=== PATIENT | male | born 1975 | race Caucasian/White ===

== ENCOUNTER 2017-06-04 19:25 | Emergency (ER) | payer OTHER, SELFPAY ==
[2017-06-04 20:09] VITALS: BP 116/63; PULSE 98; RESP 22; TEMP 36.6; O2SAT 97; BMI 22.8
--- NOTE | 2017-06-04 20:23 | HMH.EDUTC ---
[facility] [place] Disposition Clinical Impression: Influenza Disposition: Home, Self-Care Condition on Discharge: Good Instructions: Influenza Additional Instructions: ? Lots of rest ? Increase Fluids water, Gatorade, powerade, pedialyte,if /toddler/child ? Alternate Tylenol and / or ibuprofen as discussed for fever, aches, chills x 24 hours without medication for symptoms ? Follow up IMMEDIATELY for new or worsening Symptoms OR no noticeable improvement over the next 48-72 hours, 911 for difficulty or breathing ? You or your child area contagious until no fever, aches, chills for 24 hours with medication for symptoms Considering you didnt want to take Tamiflu make sure that you drink plenty of fluids, cover your cough, rest, Over the counter Motrin or Tylenol as needed for fever or pain Forms: Work/School Release Time of Disposition: 20:28 Medical Decision Making - Medical Records Medical records reviewed: Yes: I reviewed the patient's medical records. Vital Signs: 06/04/17 20:09 Temperature 98 F Temperature Source Temporal Artery Scan Pulse Rate [Right] 98 H Respiratory Rate 22 Blood Pressure [Right Arm] 116/63 Blood Pressure Mean [Right Arm] 80 Blood Pressure Source [Right Arm] Automatic Cuff Blood Pressure Position [Right Arm] Sitting 02 Sat by Pulse Oximetry 97 Oxygen Delivery Method Room Air - Gianni Inquiry Pt receiving controlled substance: No Gianni was queried for this patient: No - Reevaluation(s) Time: 20:27 (Patient state that he does not want to take Tamiflu that he has taking it in the past and it made his stomach hurt) [facility] [place] HPI - General Stated complaint: fever, cough, sore throat Mode of Arrival: Ambulatory Source of Information: Patient Limitations: No Limitations Description of Symptoms (Recalled from Triage Doc. by RN): COUGH, CONGESTION HEENT Symptoms (Recalled from RN notes): Yes Resp Symptoms (Recalled from RN notes): No Skin Symptoms (Recalled from RN notes): No MS Symptoms (Recalled from RN notes): No Functional Status (Recalled from RN notes): N - History of Present Illness Provider Complaint: State that his had the flu last week State that for the last 3 days he hasn't been feeling well State that today he began to run a fever and it has continued to come and go all day State that fever has been running around 101.5 - Related Data Home Medications Medication Instructions Recorded Confirmed No Known Home Medications [No 06/04/17 06/04/17 Known Home Medications] Allergies Allergy/AdvReac Type Severity Reaction Status Date / Time morphine [MORPHINE] Allergy Intermediate Verified 06/04/17 20:13 oxycodone [OXYCODONE] Allergy Intermediate Verified 06/04/17 20:13 - Worker's Comp Is this a Worker's Comp case?: Yes [facility] History I have reviewed the patient's past medical history: Yes - *Social History Smoking Status: Current every day smoker Tobacco Type: cigarettes Alcohol Intake: never - Psychiatric History Expresses thoughts of harming self/others: None Suicide Plan Description: No Plan ROS Obtained: Yes All systems reviewed & no additional complaints - Constitutional Constitutional: Reports body ache, Reports chills, Reports fever(s) - ENT Ears, Nose, Mouth, and Throat: Reports sore throat Physical Exam - General General appearance: alert, in no apparent distress - Expanded ENT Exam Comment: Throat red, and irritated - Respiratory Respiratory exam: Present: normal lung sounds bilaterally. Absent: respiratory distress - Cardiovascular Cardiovascular exam: Present: regular rate, normal rhythm. Absent: JVD - Neurological Exam Neurological exam: Present: alert, oriented X3
[2017-06-04 20:24] LABS: UTC Influenza A Antigen Positive (Negative); UTC Influenza B Antigen Negative (Negative)
--- NOTE | 2017-06-04 20:27 | ED_ITS ---
[facility] [place] Disposition Clinical Impression: Influenza Disposition: Home, Self-Care Condition on Discharge: Good Instructions: Influenza Additional Instructions: ? Lots of rest ? Increase Fluids water, Gatorade, powerade, pedialyte,if /toddler/child ? Alternate Tylenol and / or ibuprofen as discussed for fever, aches, chills x 24 hours without medication for symptoms ? Follow up IMMEDIATELY for new or worsening Symptoms OR no noticeable improvement over the next 48-72 hours, 911 for difficulty or breathing ? You or your child area contagious until no fever, aches, chills for 24 hours with medication for symptoms Considering you didnt want to take Tamiflu make sure that you drink plenty of fluids, cover your cough, rest, Over the counter Motrin or Tylenol as needed for fever or pain Forms: Work/School Release Time of Disposition: 20:28 Medical Decision Making - Medical Records Medical records reviewed: Yes: I reviewed the patient's medical records. Vital Signs: 06/04/17 20:09 Temperature 98 F Temperature Source Temporal Artery Scan Pulse Rate [Right] 98 H Respiratory Rate 22 Blood Pressure [Right Arm] 116/63 Blood Pressure Mean [Right Arm] 80 Blood Pressure Source [Right Arm] Automatic Cuff Blood Pressure Position [Right Arm] Sitting 02 Sat by Pulse Oximetry 97 Oxygen Delivery Method Room Air - Gianni Inquiry Pt receiving controlled substance: No Gianni was queried for this patient: No - Reevaluation(s) Time: 20:27 (Patient state that he does not want to take Tamiflu that he has taking it in the past and it made his stomach hurt) [facility] [place] HPI - General Stated complaint: fever, cough, sore throat Mode of Arrival: Ambulatory Source of Information: Patient Limitations: No Limitations Description of Symptoms (Recalled from Triage Doc. by RN): COUGH, CONGESTION HEENT Symptoms (Recalled from RN notes): Yes Resp Symptoms (Recalled from RN notes): No Skin Symptoms (Recalled from RN notes): No MS Symptoms (Recalled from RN notes): No Functional Status (Recalled from RN notes): N - History of Present Illness Provider Complaint: State that his had the flu last week State that for the last 3 days he hasn't been feeling well State that today he began to run a fever and it has continued to come and go all day State that fever has been running around 101.5 - Related Data Home Medications Medication Instructions Recorded Confirmed No Known Home Medications [No 06/04/17 06/04/17 Known Home Medications] Allergies Allergy/AdvReac Type Severity Reaction Status Date / Time morphine [MORPHINE] Allergy Intermediate Verified 06/04/17 20:13 oxycodone [OXYCODONE] Allergy Intermediate Verified 06/04/17 20:13 - Worker's Comp Is this a Worker's Comp case?: Yes [facility] History I have reviewed the patient's past medical history: Yes - *Social History Smoking Status: Current every day smoker Tobacco Type: cigarettes Alcohol Intake: never - Psychiatric History Expresses thoughts of harming self/others: None Suicide Plan Description: No Plan ROS Obtained: Yes All systems reviewed & no additional complaints - Constitutional Constitutional: Reports body ache, Reports chills, Reports fever(s) - ENT Ears, Nose, Mouth, and Throat: Reports sore throat Physical Exam - General General
== END 2017-06-04 20:30 | disposition home or self-care (01) ==
PROVIDERS: Emergency Provider Nurse Practitioner; Family Provider Emergency Medicine
DX: J11.1 Influenza due to unidentified influenza virus with other respiratory manifestations (principal); F17.210 Nicotine dependence, cigarettes, uncomplicated
CPT/HCPCS: 87804; 99201

== ENCOUNTER 2017-06-09 09:25 | Emergency (ER) | payer OTHER, SELFPAY ==
[2017-06-09 09:38] VITALS: BP 137/88; PULSE 72; RESP 20; TEMP 36.6; O2SAT 98; BMI 22.7
--- NOTE | 2017-06-09 09:43 | XR_ITS ---
XR chest 2V Ordering Physician: Samantha Stovall Patient Age: 42 years: Male HISTORY: ITS.REASON: PRODUCTIVE COUGH TECHNIQUE: PA and lateral chest COMPARISON :Previous chest film June 2011 FINDINGS Nothing definitely acute. No discrete focal consolidation or peripheral pneumonia. The minor accentuation of markings toward the right lower lobe on a lateral view appears stable since 2012 and most likely reflects less than optimal inspiration on the lateral view. There may be some upper normal thickening airways which could reflect bronchitis. Is this patient is smoker? . Heart juanita and mediastinal structures satisfactory Heart juanita and mediastinal structures stable. Chest wall T-spine unremarkable. IMPRESSION: Nothing definitely acute. Stable chest versus 2012
--- NOTE | 2017-06-09 10:16 | HMH.EDUTC ---
[facility] [place] Clinical Impression: Acute bronchitis Qualifiers: Bronchitis organism: other organism Qualified Code(s): J20.8 - Acute bronchitis due to other specified organisms Disposition: Home, Self-Care Condition on Discharge: Good Instructions: Acute Bronchitis, DI for Acute Bronchitis Additional Instructions: Increase fluids. rest Tylenol and ibuprofen as needed for pain or fever Medication is ordered Follow up with primary care this week if no improvement If symptoms worsen or do not improve return to be seen in the ER Time of Disposition: 10:44 Medical Decision Making Vital Signs: 06/09/17 09:38 Temperature 97.9 F Temperature Source Temporal Artery Scan Pulse Rate [Brachial] 72 Respiratory Rate 20 Blood Pressure [Right Arm] 137/88 Blood Pressure Mean [Right Arm] 104 Blood Pressure Source [Right Arm] Automatic Cuff Blood Pressure Position [Right Arm] Sitting 02 Sat by Pulse Oximetry 98 Oxygen Delivery Method Room Air Orders (Tests/Meds): ORDERS Category Date Time Status Chest XR 2 view (NOT portable) [XR chest 2V] Stat Exams 06/09/17 09:43 Taken - Radiology Data #1 Image(s): Chest Image Reviewed: Yes I reviewed the patient's radiology image Preliminary Findings: Normal/NAD - Gianni Inquiry Pt receiving controlled substance: No [facility] [place] - General Chief complaint: [facility] Stated complaint: cough drainage Time Seen by Provider: 06/09/17 10:16 Mode of Arrival: Ambulatory Source of Information: Patient Limitations: No Limitations Description of Symptoms (Recalled from Triage Doc. by RN): PT COMPLAINS OF A COUGH THAT HE HAS HAD FOR APPROX 9 DAYS. STATES HE WAS SEEN LAST WEEK HERE AT THE [facility] AND TOLD THAT HE HAD THE FLU BUT DID NOT KNOW IF HE WAS STARTING THE FLU OR GETTING OVER THE FLU. STATES HE IS NO BETTER. HEENT Symptoms (Recalled from RN notes): No Resp Symptoms (Recalled from RN notes): Yes Skin Symptoms (Recalled from RN notes): No MS Symptoms (Recalled from RN notes): No Functional Status (Recalled from RN notes): NA - History of Present Illness Provider Complaint: 42-year-old male presents today for cough, body aches, chest congestion, diagnosed last week with flu refused Tamiflu and states he is feeling worse. - Related Data Home Medications Medication Instructions Recorded Confirmed No Known Home Medications [No 06/04/17 06/04/17 Known Home Medications] Allergies Allergy/AdvReac Type Severity Reaction Status Date / Time morphine [MORPHINE] Allergy Intermediate Verified 06/04/17 20:13 oxycodone [OXYCODONE] Allergy Intermediate Verified 06/04/17 20:13 - Worker's Comp Is this a Worker's Comp case?: No [facility] History I have reviewed the patient's past medical history: Yes - *Social History Smoking Status: Current every day smoker Tobacco Type: cigarettes Alcohol Intake: never - Psychiatric History Expresses thoughts of harming self/others: None Suicide Plan Description: No Plan ROS Obtained: Yes All systems reviewed & no additional complaints - Constitutional Constitutional: Reports system reviewed and no additional complaints, except as docu, Reports body ache, Reports chills, Reports fever(s) - Eyes Eyes: Reports system reviewed and no additional complaints, except as docu - ENT Ears, Nose, Mouth, and Throat: Reports system reviewed and no additional complaints, except as docu - Cardiovascular Cardiovascular: Reports system reviewed and no additional complaints, except as docu, Reports as per HPI - Respiratory Respiratory: Yes system reviewed and no additional complaints, except as docu, Yes chest congestion, Yes cough, Yes non-productive cough - Gastrointestinal Gastrointestingal: Reports: system reviewed and no additional complaints, except as docu - Musculoskeletal Musculoskeletal: Reports system reviewed and no additional complaints, except as docu - Integumentary/Breasts Skin/Breast: Reports syste
== END 2017-06-09 11:00 | disposition home or self-care (01) ==
PROVIDERS: Emergency Provider Nurse Practitioner Family; Family Provider Emergency Medicine
DX: J20.8 Acute bronchitis due to other specified organisms (principal); F17.210 Nicotine dependence, cigarettes, uncomplicated
CPT/HCPCS: 71046; 99202

== ENCOUNTER 2019-12-11 22:35 | Emergency (ER) | payer BC, SELFPAY ==
[2019-12-11 22:42] VITALS: BMI 22.7
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
[2019-12-11 22:43] VITALS: BP 127/82; PULSE 90; RESP 18; TEMP 36.8; O2SAT 98; BMI 22.7
--- NOTE | 2019-12-11 22:43 | XR_ITS ---
PROCEDURE: XR WRIST RT MIN 3V Patient Age:44Y CLINICAL INDICATION: fall landing on and trying to catch himself with wrist. With pain at right wrist radial aspect. History of screw placement 20 years ago COMPARISON: No exams were available for comparison FINDINGS: 3 right wrist 3view: AP lateral and oblique A fixation screw in place entering obliquely from the radial styloid anteriorly and obliquely passing into and transversing the distal radius. There has been advanced healing at the old distal radial fracture with residual deformity. There is a old displaced corticated fragment and irregularity irregularity anterior aspect of the distal radius... Suggestion of narrowing of the radial/lunate articulation with degenerative changes and most evident at this specific articulation. 5.5 cm cystic area at lunate noted.. Question possible minimal old depression distal radial articular surface with minimal hypertrophic buttressing about this joint likely present... If pain persists consider Orthopedic follow-up. Obtaining comparison old films, would be very helpful to see if there has been interval change in this case. .. No discrete acute fracture. Also note ulnar positive variant. With this the distal ulna can impinge upon the triquetrum but no prominent changes here on plain film. Mild irregularity at the distal ulna suggests there may have been old fracture here as well and possibly at base of ulnar styloid Minor soft tissue swelling anteriorly but IMPRESSION: No good evidence of acute fracture or findings . Postsurgical changes at distal radius. Posttraumatic changes at distal radius and ulna; with narrowing and degenerative changes most notable at radial-lunate articulation. If pain persist suggest attempting obtain any interval old lower right wrist studies would be helpful, along with orthopedic follow-up Dictated by: Adonis Marcelo MD 12/12/2019 11:55 Electronically signed by Adonis Marcelo MD in [place] 12/12/2019 11:55
[2019-12-11 23:05] VITALS: BP 132/81; PULSE 88; RESP 18; TEMP 36.7
== END 2019-12-11 23:08 | disposition home or self-care (01) ==
PROVIDERS: Emergency Provider Emergency Medicine; PCP Emergency Medicine
DX: S63.501A Unspecified sprain of right wrist, initial encounter (principal); W01.0XXA Fall on same level from slipping, tripping and stumbling without subsequent striking against object, initial encounter; Y92.017 Garden or yard in single-family (private) house as the place of occurrence of the external cause
CPT/HCPCS: 29125; 73110; 99282; 99283

== ENCOUNTER 2020-07-01 01:02 | Emergency (ER) | payer BC, SELFPAY ==
[2020-07-01 01:03] VITALS: BP 121/65; PULSE 89; RESP 16; TEMP 36.8; O2SAT 97; BMI 22.7
[2020-07-01 01:36] VITALS: BP 121/65; PULSE 89; RESP 16; TEMP 36.8; O2SAT 98
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
== END 2020-07-01 01:40 | disposition home or self-care (01) ==
PROVIDERS: Emergency Provider Emergency Medicine; PCP Emergency Medicine
DX: Z00.8 Encounter for other general examination (principal)
CPT/HCPCS: 36415; 99282

== ENCOUNTER → 2020-10-12 10:32 | Outpatient (CLI) | payer BC, SELFPAY ==
[2020-10-12 11:10] LABS: Basophils % 0.6 % (0.1-2.0); Eosinophils # 0.1 K/mm3 (0.0-0.4); Eosinophils % 1.3 % (0.1-12.0); Hematocrit 47.8 % (42.0-52.0); Hemoglobin 16.2 g/dL (14.1-18.0); Lymphocytes # 1.8 K/mm3 (0.7-4.5); Mean Corpuscular HGB Conc 33.9 g/dL (31.8-35.4); Mean Corpuscular Hemoglobin 31.2 pg (27.0-31.2); Mean Platelet Volume 7.2 fl (7.4-10.4); Monocytes # 0.4 K/mm3 (0.1-1.0); Monocytes % 6.8 % (1.7-9.3); Neutrophils # 3.3 K/mm3 (1.8-7.8); Neutrophils % 59.3 % (37.0-80.0); Platelet Count 241 K/mm3 (142-424); Red Cell Distribution Width 13.2 % (11.5-17.5); White Blood Count 5.5 K/mm3 (4.8-10.8)
[2020-10-12 11:37] LABS: Alanine Aminotransferase 19 U/L (12-78); Albumin Level 4.4 g/dl (3.5-5.0); Albumin/Globulin Ratio 1.8 (1.1-1.8); Alkaline Phosphatase 52 U/L (38-126); Anion Gap 10.6 mEq/L (5-15); Aspartate Amino Transferase 24 U/L (17-59); Bilirubin,Total 0.5 mg/dl (0.2-1.3); Blood Urea Nitrogen 16 mg/dl (9-20); Calcium 9.2 mg/dl (8.4-10.2); Carbon Dioxide 30 mmol/L (22.0-30.0); Chloride 107 mmol/L (98-107); Chol/HDL Ratio 3.6 (1-3.5); Cholesterol 161 mg/dl (140-200); Estimated Glomerular Filt Rate 80 ml/min (>60); GFR (African American) 97 ML/MIN (>60); Globulin 2.5 g/dL (1.3-3.2); Glucose 89 mg/dl (74-100); HDL Cholesterol 45 mg/dl (40-60); Potassium 4.6 mmoL/L (3.5-5.1); Sodium 143 mmol/L (136-145); Total Protein,Serum 6.9 g/dl (6.3-8.2); Triglycerides 74 mg/dl (30-150); VLDL Cholesterol 15 mg/dL (0-40)
[2020-10-12 11:49] LABS: Direct LDL Cholesterol 85.03 mg/dL (100-129)
[2020-10-12 11:54] LABS: T4 (Thyroxine) 7.8 ug/dl (5.53-11.0)
[2020-10-12 11:55] LABS: 25-OH Vitamin D, Total 28.9 ng/mL (30-100)
[2020-10-12 12:08] LABS: Prostate Specific Ag Screen 1.9 ng/ml (0.0-4.0); Thyroid Stimulating Hormone 0.72 uIU/mL (0.465-4.68)
== END ==
PROVIDERS: Visit Provider Nurse Practitioner Family
DX: Z00.00 Encounter for general adult medical examination without abnormal findings (principal); Z12.5 Encounter for screening for malignant neoplasm of prostate; E55.9 Vitamin D deficiency, unspecified
CPT/HCPCS: 36415; 80053; 80061; 82306; 84436; 84443; 85025; G0103

== ENCOUNTER 2021-05-24 13:31 | Emergency (ER) | payer BC, SELFPAY ==
[2021-05-24] VITALS (7 sets, daily range): BP systolic 0–71; BP diastolic 0–48; PULSE 0–129; RESP 0–33; TEMP -17.7–0; O2SAT 0–83; BMI 24.3
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
--- NOTE | 2021-05-24 13:35 | PC.NURSE ---
Chest tube inserted to left side of chest region per
--- NOTE | 2021-05-24 13:42 | PC.NURSE ---
on hold with [facility] MDs
--- NOTE | 2021-05-24 13:42 | PC.NURSE ---
Inserting chest tube at this time
--- NOTE | 2021-05-24 13:43 | PC.NURSE ---
2 units of O neg PRBC administered at 1343 ended at 1356 2 units of O + spiked and infusing, ended at 1404, 2 units of A+ spiked and infusing, pt before units were completely infused.
--- NOTE | 2021-05-24 14:15 | PC.NURSE ---
1250 of blood out from chest tube
--- NOTE | 2021-05-24 14:55 | PC.NURSE ---
Notified SAUL of
--- NOTE | 2021-05-24 15:17 | PC.NURSE ---
1344: pt began to smith down to the 40s, 1 amp of atropine and 1 of epi given at 1345. 1350: pulse 150, 200m of succs and 20mg of etomidate given for intubation 1353: intubation unsuccessful: nasal airway place per MD 1355: pulse checked, no pulse, CPR initiated, 1 of epi given 1356: intubated with 7.5 ETT 23 @ lip 1358: pulse check, PEA noted to monitor, 1 of epi given, CPR continued. 1359: 1 amp of bicarb given 1401: pulse check, pt does have a pulse, sinus on monitor. 1401: pulse lost again, PEA on monitor, CPR cont., 1 epi given 1402: doppler pulse noted to be 150 1404: 1 of epi given 1406: pulse check, PEA, CPR continued. 1407: 1 epu given 1409: pulse neck, no pulse, CPR continued 1415: speaking to family 1416: called TOD
--- NOTE | 2021-05-24 16:00 | PC.NURSE ---
Spoke to Jay at [facility] and stated not to release body and that she would xavier back
--- NOTE | 2021-05-24 16:02 | PC.NURSE ---
SAUL released body,
--- NOTE | 2021-05-24 16:18 | [facility].EDTRAUMA ---
ED Disposition Clinical Impression: Cardiopulmonary arrest Disposition: Condition on Discharge: Referrals: Provider,Referral, [Primary Care Provider] - - Critical Care Critical Care Time: Yes Attestation: On 05/24/21, the high probability of a clinically significant, sudden or life threatening deterioration of the following system(s) required my full and direct attention, intervention and personal management. The time I documented below is in addition to time spent performing reported procedures but includes the following listed in this critical care notation. Vital system(s) involved:: Circulatory Failure, Respiratory Failure My critical care processes included: Assessment & monitoring of V/S, Initial and Re-exams, Data Review/Interpretation, Coordinating Care, Medication Orders and management, Documentation Medical Decision Making - Gianni Inquiry Pt receiving controlled substance: No Vital Signs: 05/24/21 13:31 05/24/21 13:34 05/24/21 13:38 Pulse Rate 126 H 122 H Pulse Rate [Apical] 129 H Respiratory Rate 25 H 25 H 30 H Blood Pressure 71/47 L 50/28 L Blood Pressure [Right Arm] 71/37 L Blood Pressure Mean [Right Arm] 48 02 Sat by Pulse Oximetry 83 L 83 L Oxygen Delivery Method Non-Rebreather Non-Rebreather Non-Rebreather 05/24/21 13:40 05/24/21 13:45 05/24/21 13:56 Pulse Rate 127 H 37 L Pulse Rate [Apical] Respiratory Rate 26 H 33 H Blood Pressure 68/21 L 63/48 L 65/19 L Blood Pressure [Right Arm] Blood Pressure Mean [Right Arm] 02 Sat by Pulse Oximetry 80 L Oxygen Delivery Method Ambu-Bag Ambu-Bag - Lab Data Lab Results 05/24/21 13:45: Blood Type AB Positive, Antibody Screen Negative, Crossmatch (AHG) See Detail Orders (Tests/Meds): ED MEDICATIONS Generic Name Dose Route Start Last Admin Trade Name Freq PRN Reason Stop Dose Admin Epinephrine HCl 1 mg 05/24/21 14:30 Epinephrine 0.1 Mg/Ml 10ml Syringe (Crash Cart) IV 06/23/21 14:29 NEEDED PRN code blue Discontinued Medications Generic Name Dose Route Start Last Admin Trade Name Freq PRN Reason Stop Dose Admin Atropine Sulfate 0.4 mg 05/24/21 14:33 05/24/21 13:48 Atropine Sulfate 0.4mg/Ml Vial IV 05/24/21 14:34 0.4 mg ONCE ONE Administration Etomidate 20 mg 05/24/21 13:50 05/24/21 13:50 Etomidate 40mg/20ml Vial IV 05/24/21 13:51 20 mg ONCE ONE Administration Sodium Chloride 1,000 mls @ 999 mls/hr 05/24/21 14:45 05/24/21 13:35 Sod Chlor 0.9% 1000ml Bag IV 05/24/21 15:45 999 mls/hr .Q1H1M MATA Administration Sodium Chloride 1,000 mls @ 999 mls/hr 05/24/21 14:45 05/24/21 13:35 Sod Chlor 0.9% 1000ml Bag IV 05/24/21 15:45 999 mls/hr .Q1H1M MATA Administration Sodium Bicarbonate 50 meq 05/24/21 14:37 05/24/21 13:59 Sodium Bicarb 8.4% 50ml Syringe (Crash Cart) IV 05/24/21 14:38 50 meq ONCE ONE Administration Succinylcholine Chloride 200 mg 05/24/21 14:34 05/24/21 13:50 Succinylcholine 20mg/Ml 10 Ml Mdv IV 05/24/21 14:35 200 mg ONCE ONE Administration ORDERS Category Date Time Status Type and Screen Stat BBK 05/24/21 13:45 Results Medical Decision Narrative: blood and fluids immediatly hung left sided chest tube by me for suspected hemothorax 20 fr available to me, #11 blade, advanced with nena clamp, large amount of blood returned through tube to suction, secured with 2-0 nylon and tape pt combative RSI intubation by me direc viz confirmed with bs's pulse lost ACLS followed mult rounds of epi/bicarb/blood units/fluids given no return of pulse pt Trauma Alert The Trauma Alert Section documentation for [id number] oWody Anderson was populated with data that defaulted in from the bedspread folder in the Trauma Alert Triage Assessment on f_Reg Service Date] to provide within this report, the status of the patient on arrival to the ED during the Trauma Alert. - Arrival Mo
== END 2021-05-24 18:23 | disposition expired ==
PROVIDERS: Emergency Provider Emergency Medicine
DX: I46.9 Cardiac arrest, cause unspecified (principal); S27.808A Other injury of diaphragm, initial encounter; X78.1XXA Intentional self-harm by knife, initial encounter; Y92.039 Unspecified place in apartment as the place of occurrence of the external cause; J45.909 Unspecified asthma, uncomplicated
CPT/HCPCS: 32551; 36430; 71045; 86850; 96365; 96366; 96375; 96376; 99291; J0330; P9016